=== PATIENT | female | born 1970 | race African-American/Black ===

== ENCOUNTER → 2017-03-05 | Outpatient (CLI) | payer OTHER ==
--- NOTE | 2017-03-06 06:55 | RAD ---
Pelvic ultrasound, 03/05/2017: History: Right lower quadrant pain Transabdominal scans were obtained. The uterus is enlarged measuring approximately 20 x 8 x 13 cm. It contains multiple masses compatible with uterine fibroids. These masses tended be isoechoic to slightly hyperechoic in a heterogeneous pattern. The largest of these measures approximately 7 cm and lies in the lower uterine segment on the left. At least 4 other discrete uterine masses are present. These masses distort the central uterine echo complex. The central uterine echo complex is not thickened. The ovaries are of normal size. No adnexal mass is seen. No free fluid is present in the pelvis. IMPRESSION: Enlarged fibroid uterus
== END | disposition home or self-care (01) ==
LOC: US 15:47
PROVIDERS: ATTEND Physician Assistant
DX: D25.9 Leiomyoma of uterus, unspecified (principal)
CPT/HCPCS: 76856

== ENCOUNTER 2018-05-27 15:17 | Inpatient (IN) | payer BC, OTHER ==
[~2018-05-27] VITALS: Ht 162.6 cm; Wt 81.6 kg
--- NOTE | 2018-05-27 15:55 | PHYS DOC ---
Adult General Chief Complaint Chief Complaint: SHORTNESS OF BREATH HPI HPI 47-year-old female presents with shortness of breath and chest pain. The patient had one episode of chest heaviness last night that lasted for less than 30 minutes. Today she has had several episodes where she feels short of breath and is difficult to take a deep breath. This brings on a chest heaviness of moderate intensity they can last for up to half an hour. She denies diaphoresis. She has not had symptoms like this before. She has no cardiac history. She denies fever or chills. She has been slightly nauseous, but no vomiting or diarrhea. Review of Systems Review of Systems Constitutional: Denies fever or chills [] Eyes: Denies change in visual acuity, redness, or eye pain [] HENT: Denies nasal congestion or sore throat [] Respiratory: shortness of breath [] Cardiovascular: No additional information not addressed in HPI [] GI: Denies abdominal pain, nausea, vomiting, bloody stools or diarrhea [] : Denies dysuria or hematuria [] Musculoskeletal: Denies back pain or joint pain [] Integument: Denies rash or skin lesions [] Neurologic: Denies headache, focal weakness or sensory changes [] Endocrine: Denies polyuria or polydipsia [] All other systems were reviewed and found to be within normal limits, except as documented in this note. Physical Exam Physical Exam Constitutional: Well developed, well nourished, no acute distress, non-toxic appearance. [] HENT: Normocephalic, atraumatic, bilateral external ears normal, oropharynx moist, no oral exudates, nose normal. [] Eyes: PERRLA, EOMI, conjunctiva normal, no discharge. [] Neck: Normal range of motion, no tenderness, supple, no stridor. [] Cardiovascular:Heart rate regular rhythm, no murmur [] Lungs & Thorax: Bilateral breath sounds clear to auscultation [] Abdomen: Bowel sounds normal, soft, no tenderness, no masses, no pulsatile masses. [] Skin: Warm, dry, no erythema, no rash. [] Back: No tenderness, no CVA tenderness. [] Extremities: No tenderness, no cyanosis, no clubbing, ROM intact, no edema. [] Neurologic: Alert and oriented X 3, normal motor function, normal sensory function, no focal deficits noted. [] Psychologic: Affect normal, judgement normal, mood concerned. [] EKG EKG Sinus rhythm, rate 95, normal axis, no ST elevations or depressions.[] Radiology/Procedures Radiology/Procedures [] Impressions: EXAM: Chest, single view. HISTORY: Chest pain. COMPARISON: None. FINDINGS: A frontal view of the chest is obtained. There is linear suspected lingular and bilateral basilar atelectasis. There is no consolidation, pleural effusion or pneumothorax. The heart is normal in size. IMPRESSION: Linear suspected lingular and bilateral basilar atelectasis. Electronically signed by: Ryanne Farley MD (05/27/2018 4:33 PM) [facility] DICTATED AND SIGNED BY: RYANNE FARLEY MD DATE: 05/27/181632 CC: ALEXANDRA COURTNEY DO; CLINTON MERCHANT MD ~ Course & Med Decision Making Course & Med Decision Making Pertinent Labs and Imaging studies reviewed. (See chart for details) The patient's EKG is unremarkable. Her chest x-ray shows lingular and bilateral basilar atelectasis. Troponin is negative. Her labs significant for extremely high white count of 35.5, with a left shift and a significant number of absolute neutrophils. I have additionally ordered blood culture and urinalysis. Will prophylactically treat her with 1 g of Rocephin and 500 mg of azithromycin. She did not meet sepsis criteria. I spoke to Dr. Merchant and he has agreed to admit the patient. [] Dragon Disclaimer Dragon Disclaimer This electronic medical record was generated, in whole or in part, using a voice recognition dictation system. Departure Departure: Impression: Primary Impression: Chest pain Additional Impressions: Elevated WBC count Pneumonia Disposition: ADMITTED INPATIENT Admitting Physician: Clinton Merchant Condition: STABLE Referrals: CLINTON MERCHANT MD (PCP) Problem Qualifiers Primary Impression: Chest pain Chest pain type: chest pain on breathing Qualified Codes: R07.1 - Chest pain on breathing Additional Impressions: Elevated WBC count Leukocytosis type: bandemia Qualified Codes: D72.825 - Bandemia Pneumonia Pneumonia type: due to unspecified organism Laterality: unspecified laterality ALEXANDRA COURTNEY DO May 27, 2018 15:55
[2018-05-27 16:01] LABS: BASO # 0.2 x10^3/uL (0.0-0.2); BASO % 1 % (0-3); EOS % 0 % (0-3); HEMATOCRIT 39.4 % (36.0-47.0); HEMOGLOBIN 13.7 g/dL (12.0-15.5); LYMPH # 0.4 x10^3/uL (1.0-4.8); LYMPH % 1 % (24-48); MEAN CORPUSCULAR HEMOGLOBIN 28 pg (25-35); MEAN CORPUSCULAR HGB CONC 35 g/dL (31-37); MEAN CORPUSCULAR VOLUME 79 fL (79-100); MONO # 0.5 x10^3/uL (0.0-1.1); MONO % 1 % (0-9); NEUT # 34.4 x10^3uL (1.8-7.7); NEUT % 97 % (31-73); PLATELET COUNT 290 x10^3/uL (140-400); RED BLOOD COUNT 4.98 x10^6/uL (3.50-5.40); RED CELL DISTRIBUTION WIDTH 18.2 % (11.5-14.5)
[2018-05-27 16:12] LABS: ALBUMIN 3.7 g/dL (3.4-5.0); ALBUMIN/GLOBULIN RATIO 0.9 (1.0-1.7); CALCIUM 9.1 mg/dL (8.5-10.1); CREATININE 0.9 mg/dL (0.6-1.0); GFR 81.2; POTASSIUM 3.9 mmol/L (3.5-5.1); TOTAL BILIRUBIN 0.4 mg/dL (0.2-1.0)
--- NOTE | 2018-05-27 16:13 | EKG ---
[address] [address] Test Date: 2018-05-27 Test Time: 15:49:34 Pat Name: AKASH BARRETT Department: Room: Gender: F Voice Data Communications Engineer: MARILYN : 1970 Requested By: ALEXANDRA COURTNEY Order Number: [id number] Reading MD: Levi Kapoor Measurements Intervals [place] Rate: 95 P: 59 VA: 174 QRS: 34 QRSD: 82 T: 26 QT: 332 QTc: 420 Interpretive Statements SINUS RHYTHM Electronically Signed On 06-02-2018 13:08:04 CDT by Levi Kapoor
--- NOTE | 2018-05-27 16:35 | RAD ---
EXAM: Chest, single view. HISTORY: Chest pain. COMPARISON: None. FINDINGS: A frontal view of the chest is obtained. There is linear suspected lingular and bilateral basilar atelectasis. There is no consolidation, pleural effusion or pneumothorax. The heart is normal in size. IMPRESSION: Linear suspected lingular and bilateral basilar atelectasis. Electronically signed by: Ryanne Herrera MD (05/27/2018 4:33 PM) [place] [id number]
[2018-05-27 16:54] LABS: % BANDS 2 % (0-9); % LYMPHS 2 % (24-48); % MONOS 2 % (0-10); % SEGS 94 % (35-66)
[2018-05-27 16:57] LABS: ANISOCYTOSIS SLIGHT; PLT ESTIMATE ADEQUATE (ADEQUATE)
[2018-05-27 16:58] LABS: TOXIC GRANULATION SLIGHT
[2018-05-27] MEDS ORDERED: ONDANSETRON PF 4 MG/2 ML VIAL. IV PRN (17:45)
[2018-05-27] MEDS ORDERED: NITROGLYCERIN SUBLINGUAL 0.4 MG BOTTLE OF 25. SL PRN (17:45)
[2018-05-27] MEDS ORDERED: AZITHROMYCIN 500 MG in IV NORMAL SALINE 250ML 250 ML IV ONE (17:45)
[2018-05-27] MEDS: IPRATRPIUM/ALBUTEROL 0.5/2.5MG 3 ML NEBU. NEB SCH ×2 (17:52→21:02)
[2018-05-27 17:56] LABS: BILIRUBIN,URINE NEG (NEG); CLARITY,URINE CLEAR; COLOR,URINE ORANGE; GLUCOSE,URINE NEG (NEG)
[2018-05-27 17:57] LABS: BACTERIA,URINE 0 /HPF (0-FEW); NITRITE,URINE NEG (NEG); RBC,URINE 0 /HPF (0-2); SQUAMOUS EPITHELIAL CELL,UR OCC /LPF; UROBILINOGEN,URINE 0.2 mg/dL (0.2 mg/dL); WBC,URINE 0 /HPF (0-4)
[2018-05-27] MEDS ORDERED: IV NORMAL SALINE 250ML 250 ML ONE (18:00)
[2018-05-27] MEDS ORDERED: AZITHROMYCIN 500 MG VIAL. IV ONE (18:00)
[2018-05-27] MEDS ORDERED: IV NORMAL SALINE 50ML 50 ML ONE (19:22)
[2018-05-27] MEDS ORDERED: cefTRIAXone SODIUM 1 GM VIAL ONE (19:22)
[2018-05-27 20:28] VITALS: BP 104/71
[2018-05-27] MEDS: NAPROXEN 500 MG TABLET PO PRN (22:04)
[2018-05-27] MEDS: IV NORMAL SALINE 1,000ML 1,000 ML IV SCH (22:11)
[2018-05-27 22:58] VITALS: BP 114/73
[2018-05-27] MEDS ORDERED: ERGO500027 PO (23:41)
[2018-05-27] MEDS ORDERED: VITA1TAB3 PO (23:41)
[2018-05-27] MEDS ORDERED: FERR325T14 PO (23:41)
[2018-05-28 03:54] LABS: BASO # 0.1 x10^3/uL (0.0-0.2); BASO % 0 % (0-3); EOS # 0.2 x10^3/uL (0.0-0.7); EOS % 1 % (0-3); HEMATOCRIT 33.2 % (36.0-47.0); HEMOGLOBIN 11.6 g/dL (12.0-15.5); LYMPH # 1.1 x10^3/uL (1.0-4.8); LYMPH % 5 % (24-48); MEAN CORPUSCULAR HEMOGLOBIN 28 pg (25-35); MEAN CORPUSCULAR HGB CONC 35 g/dL (31-37); MEAN CORPUSCULAR VOLUME 79 fL (79-100); MONO # 0.5 x10^3/uL (0.0-1.1); MONO % 2 % (0-9); NEUT # 19.8 x10^3uL (1.8-7.7); NEUT % 92 % (31-73); PLATELET COUNT 262 x10^3/uL (140-400); RED BLOOD COUNT 4.18 x10^6/uL (3.50-5.40); RED CELL DISTRIBUTION WIDTH 18.1 % (11.5-14.5); WHITE BLOOD COUNT 21.7 x10^3/uL (4.0-11.0)
[2018-05-28] MEDS: IV NORMAL SALINE 1,000ML 1,000 ML IV SCH ×3 (04:27→18:11)
[2018-05-28] MEDS: IPRATRPIUM/ALBUTEROL 0.5/2.5MG 3 ML NEBU. NEB SCH ×3 (05:07→19:27)
[2018-05-28 05:27] VITALS: BP 96/63
[2018-05-28] MEDS: NAPROXEN 500 MG TABLET PO PRN (09:59)
[2018-05-28] MEDS: PSEUDOEPHEDRINE 30 MG TABLET. PO PRN ×2 (10:47→18:10)
[2018-05-28 11:01] VITALS: BP 101/63
--- NOTE | 2018-05-28 12:54 | RAD ---
EXAM: Maxillofacial bone CT without contrast. HISTORY: Sinus infection.. TECHNIQUE: Computed tomographic images of the maximal facial bones were obtained without contrast. *One or more of the following individualized dose reduction techniques were utilized for this examination: 1. Automated exposure control. 2. Adjustment of the mA and/or kV according to patient size. 3. Use of iterative reconstruction technique. COMPARISON: None. FINDINGS: The paranasal sinuses are clear. The ostiomeatal units are patent. There is minimal rightward nasal septal deviation. The mastoid air cells are clear. The temporomandibular joints are intact. The visualized portions of the brain and calvarium are unremarkable. The orbits are unremarkable. IMPRESSION: 1. No evidence of acute or chronic sinusitis. 2. Slight nasal septal deviation. Electronically signed by: Ryanne Herrera MD (05/28/2018 12:51 PM) [place] [id number]
--- NOTE | 2018-05-28 13:33 | RAD ---
CT of the chest without contrast, 05/28/2018: HISTORY: Sinus infection, sepsis Noncontrast scans were obtained as requested. No mediastinal mass or adenopathy is seen. The thoracic aorta is unremarkable. There are linear and streaky parenchymal opacities in both lung bases most likely representing atelectasis. The most prominent of these lies posterolaterally in the left lower lobe. A component of pneumonia in the left base cannot be excluded. Some of these linear opacities could be scars. No pulmonary mass is seen. There is no evidence of pleural fluid. IMPRESSION: 1. Moderate streaky bibasilar opacities, left greater than right, most compatible with atelectasis. 2. The chest is otherwise unremarkable. PQRS Compliance Statement: One or more of the following individualized dose reduction techniques were utilized for this examination: 1. Automated exposure control 2. Adjustment of the mA and/or kV according to patient size 3. Use of iterative reconstruction technique Electronically signed by: Carlo Diamond MD (05/28/2018 1:30 PM) [facility]
--- NOTE | 2018-05-28 13:52 | HP ---
ADMIT DATE: 05/28/2018 HISTORY OF PRESENT ILLNESS: This is a 47-year-old female. She came in through the Emergency Room. She apparently had been at a conference about 4-5 days ago. Finally came in and has been having problems with shortness of breath, chest pain and facial pain. The patient came in. DICTATION ENDS HERE. CLINTON MERCHANT MD DR: BHUPENDRA/tequila JOB#: [id number] / [id number]
[2018-05-28 14:48] VITALS: BP 102/68
[2018-05-28] MEDS ORDERED: AZITHROMYCIN 250 MG TABLET. PO SCH (18:00)
[2018-05-28 19:38] VITALS: BP 96/62
[2018-05-28] MEDS: LACTOBACILLUS RHAMNOSUS GG 1 CAPSULE. PO SCH (21:36)
[2018-05-28 22:51] VITALS: BP 103/67
[2018-05-29] MEDS: IV NORMAL SALINE 1,000ML 1,000 ML IV SCH ×2 (03:07→06:50)
[2018-05-29] MEDS: PSEUDOEPHEDRINE 30 MG TABLET. PO PRN (04:28)
[2018-05-29] MEDS: NAPROXEN 500 MG TABLET PO PRN (04:28)
[2018-05-29] MEDS ORDERED: DOCUSATE SODIUM 100 MG CAPSULE PO PRN (04:45)
[2018-05-29 05:02] VITALS: BP 100/65
[2018-05-29 06:15] LABS: BASO % 1 % (0-3); EOS # 0.2 x10^3/uL (0.0-0.7); EOS % 3 % (0-3); HEMATOCRIT 32.5 % (36.0-47.0); HEMOGLOBIN 11.4 g/dL (12.0-15.5); LYMPH # 0.9 x10^3/uL (1.0-4.8); LYMPH % 14 % (24-48); MEAN CORPUSCULAR HEMOGLOBIN 28 pg (25-35); MEAN CORPUSCULAR HGB CONC 35 g/dL (31-37); MEAN CORPUSCULAR VOLUME 80 fL (79-100); MONO # 0.4 x10^3/uL (0.0-1.1); MONO % 6 % (0-9); NEUT # 5.3 x10^3uL (1.8-7.7); NEUT % 77 % (31-73); PLATELET COUNT 250 x10^3/uL (140-400); RED BLOOD COUNT 4.06 x10^6/uL (3.50-5.40); RED CELL DISTRIBUTION WIDTH 18.1 % (11.5-14.5); WHITE BLOOD COUNT 6.9 x10^3/uL (4.0-11.0)
[2018-05-29 06:25] LABS: CALCIUM 8.2 mg/dL (8.5-10.1); CREATININE 0.8 mg/dL (0.6-1.0); POTASSIUM 3.9 mmol/L (3.5-5.1)
[2018-05-29] MEDS: LACTOBACILLUS RHAMNOSUS GG 1 CAPSULE. PO SCH (08:15)
[2018-05-29] MEDS ORDERED: methylPREDNISolone SOD SUCC PF 40 MG/ML VIAL. IV SCH (09:00)
[2018-05-29] MEDS ORDERED: FERROUS SULFATE 325 MG TABLET. PO SCH (09:00)
[2018-05-29 10:08] LABS: WHITE BLOOD COUNT 35.5 x10^3/uL (4.0-11.0)
[2018-05-29] MEDS: IPRATRPIUM/ALBUTEROL 0.5/2.5MG 3 ML NEBU. NEB SCH (11:22)
[2018-05-29] MEDS ORDERED: FLUT1DIS3 IH (13:48)
[2018-05-29] MEDS ORDERED: AZIT1PAC PO (13:48)
[2018-05-29] MEDS ORDERED: DOCU-109 PO (13:48)
[2018-05-29] MEDS ORDERED: METH4TAB2 PO (13:48)
--- NOTE | 2018-06-04 10:49 | DS ---
DATE OF DISCHARGE: 05/29/2018 HOSPITAL COURSE: A 47-year-old female who came in with increased shortness of breath and chest pain. The patient also had some sinus problems. Sinus x-rays were basically negative. A CT of the chest was performed because of her increased coughing ____. There was some moderate streaky bibasilar opacities, which were considered to be an infectious etiology of pneumonia since her white count was in excess of 35,000. Otherwise differential was unremarkable. The patient's chemistries were all within range. Her cardiac enzymes, troponins were negative. The patient's urine and coags were negative. The patient otherwise made good progress during the rest of her hospitalization and there were no complications noted. She was discharged on some oral antibiotics as the patient made excellent progress and was discharged home ____ negative. IMPRESSION: Sepsis, pneumonia of unspecified etiology, pleurisy, chest pain, leukocytosis, sinus tachycardia. The patient will be discharged on some oral medications as noted in the EMRD and decreased activity. Return to clinic in 7-10 days. Regular diet and decreased activity for now. CLINTON MERCHANT MD DR: BHUPENDRA/tequila JOB#: [id number] / [id number]
--- NOTE | 2018-06-04 10:53 | HP ---
ADMIT DATE: 05/28/2018 HISTORY OF PRESENT ILLNESS: A 47-year-old female came in with shortness of breath and chest pain. The patient has been having some chest heaviness for the last 30 minutes prior to admission. The patient feels short of breath and difficult to take a deep breath. The patient has heaviness in her chest with moderate intensity. The patient also notes that it seems to hurt when she takes a deep breath. She came in through the Emergency Room. She was admitted for rule out [place] protocol. PAST MEDICAL HISTORY: Includes uterine ablation, tubal ligation, and anemia. FAMILY HISTORY: Positive for myocardial infarction, lung cancer, colon cancer, asthma, and degenerative disk disease. ALLERGIES: There is no known allergies. HOME MEDICATIONS: Include Zithromax, ferrous sulfate, Advair Diskus, Colace, Medrol Dosepak, vitamin B complex, vitamin D. SOCIAL HISTORY: Denies smoking, alcohol, or drug use. REVIEW OF SYSTEMS: The patient denies any headaches, visual changes, blurred vision, double vision. Denies any neck pain or problems swallowing. Does have problems breathing, some shortness of breath. 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 Abdominal pain negative. No nausea, vomiting, melena, hematochezia, or hematemesis and neurologically baseline. PHYSICAL EXAMINATION: GENERAL: This is a very pleasant -[place] female in no apparent distress. VITAL SIGNS: Blood pressure of. DICTATION ENDS HERE CLINTON MERCHANT MD DR: BHUPENDRA/tequila JOB#: [id number] / [id number]
== END 2018-05-29 14:30 | disposition home or self-care (01) | DRG 871 ==
LOC: ER 15:17 → 1 SOUTH 17:30 → OBSVTOIN 05-28 09:09
PROVIDERS: ADMIT Family Medicine; ATTEND Family Medicine
DX: A41.9 Sepsis, unspecified organism (principal); J18.9 Pneumonia, unspecified organism; Z79.899 Other long term (current) drug therapy; Z82.5 Family history of asthma and other chronic lower respiratory diseases; Z82.49 Family history of ischemic heart disease and other diseases of the circulatory system; Z80.1 Family history of malignant neoplasm of trachea, bronchus and lung; Z80.0 Family history of malignant neoplasm of digestive organs; R09.1 Pleurisy
CPT/HCPCS: 36415; 70486; 71045; 71250; 80048; 80053; 81001; 84484; 85007; 85025; 85379; 85651; 87040; 93005; 94640; G0238; G0378; G0379; J0456; J0696; J2920; J7050; J7620; J7030